=== PATIENT | female | born 1965 | race Caucasian/White ===

== ENCOUNTER 2019-10-18 12:36 | Emergency (ER) | payer SELFPAY ==
[~2019-10-18] VITALS: Ht 152.4 cm; Wt 60.5 kg
[2019-10-18 12:43] VITALS: BP 130/85; TEMP 98.1
[2019-10-18 13:23] VITALS: PULSE 80
== END 2019-10-18 13:22 | disposition home or self-care (01) ==
LOC: COL.ER 12:36
DX: R21 Rash and other nonspecific skin eruption (principal); T78.40XA Allergy, unspecified, initial encounter
CPT/HCPCS: J1040; J1200

== ENCOUNTER 2020-09-20 14:08 | Inpatient (IN) | payer SELFPAY ==
[~2020-09-20] VITALS: Ht 152.4 cm; Wt 67.0 kg
[2020-09-20 15:10] LABS: BASO # 0.1 (0.0-0.2); BASO % 0.6 % (0.0-2.0); EOS # 0.2 (0.0-0.7); EOS % 2.3 % (0-4.0); GRAN # 4.4 (1.4-6.5); GRAN % 51.3 % (42.2-75.2); LYMPH # 3.2 (1.2-3.4); LYMPH % 36.7 % (20.0-51.0); MEAN CELL VOLUME 63 fl (80.0-100.0); MEAN CORPUSCULAR HGB CONC 26 g/dl (33.0-37.0); MEAN PLATELET VOLUME 9.9 fl (7.4-10.4); MONO # 0.8 (0.1-0.6); MONO % 8.8 % (1.7-9.3); PLATELET COUNT 493 K/mm3 (130-400); RED BLOOD COUNT 2.62 M/mm3 (4.10-5.30); REDCELL DISTRIBUTION WIDTH-CV 18.4 % (11.5-14.5)
[2020-09-20 15:13] LABS: MEAN CORPUSCULAR HEMOGLOBIN 16 pg (27.0-31.0)
[2020-09-20 15:15] LABS: HEMATOCRIT 16.5 % (37.0-47.0); HEMOGLOBIN 4.3 g/dl (12.5-16.0)
[2020-09-20 15:37] LABS: ALANINE AMINOTRANSFERASE 11 U/L (4-34); ALBUMIN 3.5 gm/dL (3.5-5.0); ALKALINE PHOSPHATASE 80 U/L (50-136); ANION GAP 7 mmol/L (7-16); AST,SGOT 25 U/L (15-37); BILIRUBIN,TOTAL < 0.1 mg/dL (0.0-1.0); BLOOD UREA NITROGEN 13 mg/dL (7-17); CALCIUM 8.4 mg/dL (8.4-10.2); CARBON DIOXIDE 25 mmol/L (22-30); CHLORIDE 107 mmol/L (98-107); CREATININE, serum 0.55 (0.52-1.25); GLUCOSE 82 mg/dL (74-106); LIPASE 24 U/L (23-300); POTASSIUM 3.5 mmol/L (3.4-5.0); SODIUM 140 mmol/L (137-145); TOTAL PROTEIN 6.6 gm/dL (6.4-8.2)
[2020-09-20 15:49] LABS: TROPONIN-I < 0.012 ng/mL (0.000-0.035)
[2020-09-20 17:24] LABS: COLLECTION METHOD CLEAN CATCH
[2020-09-20 17:42] LABS: MUCOUS Present /lpf; PH 6 (5-8); SQUAMOUS EPITHELIAL 0-2 /hpf; URINE APPEARANCE Clear; URINE BACTERIA None Seen /hpf; URINE BILIRUBIN Negative (NEGATIVE); URINE BLOOD Negative (NEGATIVE); URINE COLOR Straw; URINE GLUCOSE Negative (NEGATIVE); URINE KETONE Negative (NEGATIVE); URINE LEUKOCYTE ESTERASE 3+ (NEGATIVE); URINE NITRATE Negative (NEGATIVE); URINE PROTEIN(semi-quant) Negative (NEGATIVE); URINE RBC 0-2 /hpf; URINE UROBILINOGEN Negative (NEGATIVE)
[2020-09-20 17:51] LABS: IRON,SERUM < 10 ug/dL (35-150)
[2020-09-20 18:00] LABS: TOTAL IRON BINDING CAPACITY 501 ug/dL (265-497)
--- NOTE | 2020-09-20 18:07 | NUR ---
PT IN ROOM FROM ED. ASSESSMENT COMPLETED. PT IS CURRENTLY STABLE, NO OTHER CONCERNS.
[2020-09-20] MEDS ORDERED: PROAIR HFA0.09 MG/AC IH (18:10)
[2020-09-20] MEDS ORDERED: RT ALBUTER2.5 MG/0.5 IH (18:11)
[2020-09-20 20:08] VITALS: BP 116/65; PULSE 86; TEMP 98.3
[2020-09-21] VITALS (19 sets, daily range): BP systolic 100–127; BP diastolic 54–83; PULSE 18–78; TEMP 97.9–98.4
--- NOTE | 2020-09-21 01:48 | NUR ---
Patient sitting up in bed upon shift start. Patient A/O x4. Patient denies any pain or discomfort. Denies SOB or dyspnea, denies headache or dizziness. VS stable. Patient independent in the room. Ambulates to the bathroom indepedently. All scheduled meds given per JUL. NPO maintained from midnight. Blood transfusion started at 00:42 am per order. Remained at bedside for the first 15 minutes to monitor. No adverse reaction noted. Will continue to monitor.
--- NOTE | 2020-09-21 06:05 | NUR ---
2 units of blood transfused over the night. Blood transfusion finished at 05:55 am. Patient tolerated blood transfusion well. VS stable. No acute distress noted. Call light within reach. Will continue to monitor.
--- NOTE | 2020-09-21 07:27 | NUR ---
PT IS IN BED SLEEPING AT THIS TIME.
[2020-09-21 08:32] LABS: BASO # 0.1 (0.0-0.2); BASO % 0.8 % (0.0-2.0); EOS # 0.2 (0.0-0.7); EOS % 1.9 % (0-4.0); GRAN # 5.5 (1.4-6.5); LYMPH # 1.5 (1.2-3.4); MEAN CORPUSCULAR HGB CONC 29 g/dl (33.0-37.0); MONO # 0.6 (0.1-0.6); MONO % 7.1 % (1.7-9.3); PLATELET COUNT 412 K/mm3 (130-400); RED BLOOD COUNT 3.14 M/mm3 (4.10-5.30); REDCELL DISTRIBUTION WIDTH-CV 23.8 % (11.5-14.5)
[2020-09-21 08:38] LABS: HEMATOCRIT 22.2 % (37.0-47.0); HEMOGLOBIN 6.4 g/dl (12.5-16.0); MEAN CELL VOLUME 71 fl (80.0-100.0); MEAN CORPUSCULAR HEMOGLOBIN 20 pg (27.0-31.0)
[2020-09-21 08:46] LABS: CALCIUM 8.5 mg/dL (8.4-10.2); CREATININE, serum 0.54 (0.52-1.25); MAGNESIUM 2.1 mg/dL (1.6-2.3); POTASSIUM 3.6 mmol/L (3.4-5.0)
--- NOTE | 2020-09-21 11:10 | NUR ---
First visit from the tube buffer. No needs right now.
--- NOTE | 2020-09-21 13:18 | NUR ---
PT VEINS ARE BLOWING WITH ATTEMPT TO PLACE IV. PT DOES HAVE 18G IN LEFT HAND. ORDER FOR PICC IS PLACED, AND YO WOODSON WILL PLACE TODAY. NO FURTHER CONCERNS AT THIS TIME. PAIN MANAGEMENT IS BEING MANAGED. NO FURTHER CONCERNS.
--- NOTE | 2020-09-21 15:26 | NUR ---
ETIENNE met with the patient and her zlblyzvge-eets-toy daughter, Tonya, to discuss discharge plan. The patient lives in [place] with Tonya. She reports independence with ADLs and does not have any DME. The patient does not have a PCP and confirms that she is self pay. ETIENNE discussed getting set up at [facility] in [place]. The patient was interested in this. ETIENNE contacted [facility] and secured the patient an appointment on 11/09/20. The medical records receptionist reports that this is the soonest opening they have. ETIENNE informed the patient and community health counselor of the appointment. The patient's records and d/c orders will need to be faxed to [facility]. She receives her medications from [facility]. She reports that she has not been on any medications in the past, so has not had any difficulties affording them. ETIENNE discussed Medicaid and the patient was interested in applying for Medicaid while here. ETIENNE consulted Financial Counselor, [place]. The patient also provided ETIENNE with her completed FAA. ETIENNE provided the FAA to [place]. The patient does not have a DPOA-HC, but she was interested in obtaining a form. ETIENNE provided. The patient is not . She has four children. Three children are over the age 18: Oleg (36), Laura (33), and Joyce (19). The patient plans to return home with her daughter upon discharge. SW to continue to follow as needed. *Discharge plan: home with daughter, records and d/c orders need to be faxed to [facility] in [place].
[2020-09-21 17:16] LABS: TRANSFERRIN 377 mg/dL (180-382)
[2020-09-21 17:17] LABS: CALCIUM, IONIZED, SERUM 1.26 mmol/L (1.19-1.41)
[2020-09-21 17:58] LABS: FOLATE (FOLIC ACID) 13.3 ng/mL (7.0-31.4)
[2020-09-21 18:47] LABS: HEMOGLOBIN 8.4 g/dl (12.5-16.0)
--- NOTE | 2020-09-21 19:05 | NUR ---
REPORT GIVEN TO YO MORRIS
--- NOTE | 2020-09-21 23:07 | NUR ---
PT ALERT AND OX4. STARTED ON BOWEL PREP FOR COLONSCOPY TOMORROW WHICH IS MAKING HER FEEL BLOATED AND SICK. C.O NAUSEA. PRN ZOFRAN GIVEN. ALONG W PM MEDS. POC DISCUSSED. IS TO HAVE COLON/EDG AT 12 TOMORROW WILL BE NPO LATER. ENC HER TO CONTINUE DRINKING MIRLAX AND GATORAIDE. FENTANYL GIVEN PRN FOR ABD PAIN/HERNIA BOTHERSOME. RATES /. NEEDS MET
--- NOTE | 2020-09-22 01:46 | NUR ---
PT HAD A HARD TIME W BOWEL PREP. VERY NAUSEATED AND FEELING OF BLOATING. NPO NOW. WILL CONTACT HOSP AND SEE WHAT PLAN IS. RESTING QUIELTY NOW.
--- NOTE | 2020-09-22 01:48 | NUR ---
CONTACTED DIMA OJEDA TO UPDATE ON UNABLE TO TOLERATE BOWEL PREP. WILL REATTEMPT THIS AM TOLERATES.
[2020-09-22 03:34] VITALS: BP 122/74; PULSE 73; TEMP 97.9
--- NOTE | 2020-09-22 03:54 | NUR ---
pt is up having some bm this am states they are starting to get less and more clear.
[2020-09-22 06:25] LABS: MEAN CELL VOLUME 73 fl (80.0-100.0); MEAN CORPUSCULAR HGB CONC 30 g/dl (33.0-37.0); MEAN PLATELET VOLUME 10.2 fl (7.4-10.4); PLATELET COUNT 407 K/mm3 (130-400); RED BLOOD COUNT 3.63 M/mm3 (4.10-5.30); REDCELL DISTRIBUTION WIDTH-CV 24.9 % (11.5-14.5)
[2020-09-22 06:28] LABS: CALCIUM 8.4 mg/dL (8.4-10.2); CREATININE, serum 0.5 (0.52-1.25); POTASSIUM 3.2 mmol/L (3.4-5.0)
[2020-09-22 06:30] LABS: HEMATOCRIT 26.6 % (37.0-47.0); HEMOGLOBIN 7.9 g/dl (12.5-16.0); MEAN CORPUSCULAR HEMOGLOBIN 22 pg (27.0-31.0)
--- NOTE | 2020-09-22 06:42 | NUR ---
Report rcvd from YO Valdovinos. Pt has been bowel prepping for her EGD/Colon today. No further concerns at this time. Will continue to monitor for clear stools.
[2020-09-22 07:50] VITALS: BP 106/66; PULSE 66; TEMP 97.9
[2020-09-22 12:03] VITALS: BP 122/74; PULSE 69; TEMP 98.9
[2020-09-22 15:46] VITALS: BP 117/68; PULSE 66; TEMP 98.2
[2020-09-22 20:17] VITALS: BP 112/55; PULSE 82; TEMP 98.5
[2020-09-22 23:58] VITALS: BP 127/67; PULSE 76; TEMP 98
--- NOTE | 2020-09-23 00:58 | NUR ---
ALERT AND OX4. PT DENIES SOA DIZZY OR LIGHTHEADED. PAIN IN LOWER ABD RATES 5/10. DENIES NEED FOR PAIN MED AT THIS TIME. PM MEDS AND PRN DISCUSSED. PICC TO RT UPPER ARM FLUSHED GOOD BLOOD RETURN. HEMOGLOBIN STABLE AT 7.9. AM LABS ORDERED. CR NECK IN AM, WILL MAKE NPO 4 HRS PRIOR. POC DISCUSSED. NEEDS MET.
[2020-09-23 04:10] VITALS: BP 131/69; PULSE 70; TEMP 98.3
--- NOTE | 2020-09-23 05:16 | NUR ---
PT NEEDED PAIN MED X1 TONIGHT OTHERWISE HAD A DECENT NIGHT. AM LABS FROM PICC. STILL NEEDS CT NECK THIS AM. NEEDS MET.
[2020-09-23 06:37] LABS: MEAN CELL VOLUME 76 fl (80.0-100.0); MEAN CORPUSCULAR HGB CONC 29 g/dl (33.0-37.0); MEAN PLATELET VOLUME 10.2 fl (7.4-10.4); PLATELET COUNT 384 K/mm3 (130-400); RED BLOOD COUNT 3.53 M/mm3 (4.10-5.30); REDCELL DISTRIBUTION WIDTH-CV 26.5 % (11.5-14.5)
[2020-09-23 06:39] LABS: HEMATOCRIT 26.7 % (37.0-47.0); HEMOGLOBIN 7.8 g/dl (12.5-16.0); MEAN CORPUSCULAR HEMOGLOBIN 22 pg (27.0-31.0)
[2020-09-23 06:44] LABS: CALCIUM 8.4 mg/dL (8.4-10.2); CREATININE, serum 0.55 (0.52-1.25); POTASSIUM 3.4 mmol/L (3.4-5.0)
--- NOTE | 2020-09-23 07:49 | NUR ---
Patient resting in bed at this time. O2 running at 2.5 L via nasal cannula. Patient denies any pain, discomfort, or further needs at this time. Will continue to monitor. Call light within reach.
[2020-09-23 07:52] VITALS: BP 115/60; PULSE 78; TEMP 98.1
--- NOTE | 2020-09-23 08:49 | NUR ---
Patient taken down via wheelchair for CT.
[2020-09-23 11:27] VITALS: BP 129/69; PULSE 71; TEMP 98.1
[2020-09-23 16:44] VITALS: BP 131/74; PULSE 77; TEMP 98.3
--- NOTE | 2020-09-23 17:59 | NUR ---
Patient has had an uneventful day. Last HGB was 7.8. Patient has been C/O of pain in her abdomen. Before [place], patient rated the pain a 6/10, patient now rates pain 3/10. CT showed small right pleural effusion. Patient does not C/O any SOA, and is currently SATing 94% on RA. Patient denies any further pain, discomfort, or needs at this time. Daughter at the bedside. Will continue to monitor. Call light within reach.
[2020-09-23 19:31] VITALS: BP 122/66; PULSE 77; TEMP 97.9
[2020-09-24 00:46] VITALS: BP 125/76; PULSE 75; TEMP 98.1
--- NOTE | 2020-09-24 00:52 | NUR ---
Patient assessed around 2100. Alert and oriented, and able to make needs known. Denies having pain and discomfort at this time. Double lumen PICC to RUE. Denies having SOB and dyspnea. LS CTA. Respirations even and unlabored. HRR. Capillary refill less than 3 seconds. Non-tenting skin turgor. BSAx4. Abdomen soft and non-tender. Reports loose stools, and refused colace. No edema. Voices no questions, needs, or concerns at this time. Resting in bed with call light within reach.
[2020-09-24 05:02] VITALS: BP 132/77; PULSE 73; TEMP 98.4
--- NOTE | 2020-09-24 05:53 | NUR ---
Patient has been resting in bed with call light within reach. Has denied having pain and discomfort this shift. Voices no questions, needs, or concerns at this time.
[2020-09-24 07:08] LABS: CALCIUM 8.6 mg/dL (8.4-10.2); CREATININE, serum 0.5 (0.52-1.25); POTASSIUM 3.6 mmol/L (3.4-5.0)
[2020-09-24 07:11] LABS: BASO # 0.1 (0.0-0.2); BASO % 0.7 % (0.0-2.0); EOS # 0.2 (0.0-0.7); EOS % 2.7 % (0-4.0); GRAN # 4.6 (1.4-6.5); LYMPH # 2.3 (1.2-3.4); LYMPH % 29.1 % (20.0-51.0); MEAN CELL VOLUME 77 fl (80.0-100.0); MEAN CORPUSCULAR HGB CONC 29 g/dl (33.0-37.0); MEAN PLATELET VOLUME 10.1 fl (7.4-10.4); MONO # 0.8 (0.1-0.6); MONO % 9.8 % (1.7-9.3); PLATELET COUNT 358 K/mm3 (130-400); RED BLOOD COUNT 3.75 M/mm3 (4.10-5.30); REDCELL DISTRIBUTION WIDTH-CV 28.3 % (11.5-14.5)
[2020-09-24 07:14] LABS: HEMATOCRIT 28.9 % (37.0-47.0); HEMOGLOBIN 8.3 g/dl (12.5-16.0); MEAN CORPUSCULAR HEMOGLOBIN 22 pg (27.0-31.0)
--- NOTE | 2020-09-24 07:29 | NUR ---
Patient sitting up in bed at this time. C/O headache rated a 6/10. [place] given as ordered. Will continue to monitor. Patient denies any other pain or discomfort at this time. Call light within reach.
[2020-09-24 08:23] VITALS: BP 140/86; PULSE 77; TEMP 97.9
[2020-09-24] MEDS ORDERED: VENOFER IV (10:59)
[2020-09-24] MEDS ORDERED: B-121000 MCG PO (10:59)
[2020-09-24] MEDS ORDERED: VITAMIN D31000 IU PO (11:01)
[2020-09-24] MEDS ORDERED: FERROUSAL325 MG PO (11:02)
[2020-09-24 11:20] VITALS: BP 144/92; PULSE 64; TEMP 98.4
--- NOTE | 2020-09-24 13:57 | NUR ---
Patient given scheduled meds. Assessment performed. Patient denied any SOA, pain, or discomfort. Patient was deemed fit for discharge. Discharge education/instructions given, patient denied any question or concerns. PICC line to stay in for outpatient iron infusions. Signs and symptoms of infection discussed. Patient verbalized an understanding. VSS. Patient ambulated from the building escorted by [facility] Staff.
--- NOTE | 2020-09-24 13:59 | NUR ---
Pharmacy Assistant attended clinical rounds with the team and patient is ready for discharge today. Patient will need IV iron infusions and is agreeable to be [facility] up at [facility]. Patient reports she has completed a financial assistance application. ETIENNE contacted [facility] at [facility] and faxed history & physical, prescription for iron infusions, and discharge orders. Patient's first appointment will be Sunday at 1630. ETIENNE provided appointment to patient and progressive care unit registered nurse to be included in discharge orders. ETIENNE also faxed clinical information and discharge orders to [facility]. Discharge Plan: Home
== END 2020-09-24 13:00 | disposition home or self-care (01) | DRG 812 ==
LOC: COL.ER 14:08 → MEDICAL 16:41
PROVIDERS: Emergency Medicine; Internal Medicine Gastroenterology; Physician Assistant; ADMIT Family Medicine
PROC: 02HV33Z Insertion of Infusion Device into Superior Vena Cava, Percutaneous Approach (ICD-10-PCS; principal; 2020-09-21)
PROC: 0DJD8ZZ Inspection of Lower Intestinal Tract, Via Natural or Artificial Opening Endoscopic (ICD-10-PCS; 2020-09-22)
PROC: 0DB98ZX Excision of Duodenum, Via Natural or Artificial Opening Endoscopic, Diagnostic (ICD-10-PCS; 2020-09-22 12:00)
DX: D50.9 Iron deficiency anemia, unspecified (principal); D62 Acute posthemorrhagic anemia; M79.7 Fibromyalgia; D47.3 Essential (hemorrhagic) thrombocythemia; K46.9 Unspecified abdominal hernia without obstruction or gangrene; Z90.710 Acquired absence of both cervix and uterus; Z90.49 Acquired absence of other specified parts of digestive tract
CPT/HCPCS: 99232-AI; 99233-AI; C1751; C1892; C9113; G0378; J1756; J1885; J2405; J2704; J3010; J3420; J7030; P9016; Q9967

== ENCOUNTER 2020-10-04 13:00 | Outpatient (RCR) | payer SELFPAY ==
[2020-09-27 16:39] VITALS: BP 134/94; PULSE 84; TEMP 98.4
[2020-09-30 11:53] VITALS: BP 121/79; PULSE 85; TEMP 97.9
[~2020-10-04] VITALS: Ht 152.4 cm; Wt 63.5 kg
[~2020-10-04 13:00] MED LIST: B-121000 MCG PO; FERROUSAL325 MG PO; PROAIR HFA0.09 MG/AC IH; RT ALBUTER2.5 MG/0.5 IH; VENOFER IV; VITAMIN D31000 IU PO
[2020-10-04 13:30] VITALS: BP 129/87; PULSE 76; TEMP 98.7
[2020-10-04 14:02] LABS: BASO # 0.1 (0.0-0.2); BASO % 1.2 % (0.0-2.0); EOS # 0.2 (0.0-0.7); EOS % 2.7 % (0-4.0); GRAN # 3.9 (1.4-6.5); HEMOGLOBIN 10.7 g/dl (12.5-16.0); LYMPH # 2.9 (1.2-3.4); LYMPH % 37.3 % (20.0-51.0); MEAN CELL VOLUME 79 fl (80.0-100.0); MEAN CORPUSCULAR HEMOGLOBIN 24 pg (27.0-31.0); MEAN CORPUSCULAR HGB CONC 30 g/dl (33.0-37.0); MEAN PLATELET VOLUME 9.4 fl (7.4-10.4); MONO # 0.7 (0.1-0.6); MONO % 8.4 % (1.7-9.3); PLATELET COUNT 547 K/mm3 (130-400); RED BLOOD COUNT 4.54 M/mm3 (4.10-5.30)
[2020-10-04 14:10] LABS: HEMATOCRIT 35.7 % (37.0-47.0)
== END 2020-10-04 21:52 | disposition home or self-care (01) ==
LOC: EUO 13:00
PROVIDERS: Internal Medicine
DX: D50.9 Iron deficiency anemia, unspecified (principal)
CPT/HCPCS: J1756

== ENCOUNTER 2020-11-14 16:23 | Emergency (ER) | payer SELFPAY ==
[~2020-11-14] VITALS: Ht 152.4 cm; Wt 61.4 kg
[2020-11-14] MEDS ORDERED: AMOXICILLIN 8751 TAB PO (17:14)
[2020-11-14 17:25] VITALS: BP 118/84; PULSE 78; TEMP 98.5
== END 2020-11-14 17:26 | disposition home or self-care (01) ==
LOC: COL.ER 16:23
DX: J01.80 Other acute sinusitis (principal); B96.89 Other specified bacterial agents as the cause of diseases classified elsewhere; Z87.891 Personal history of nicotine dependence

== ENCOUNTER 2020-12-28 07:20 | Day surgery (SDC) | payer SELFPAY ==
[~2020-12-28] VITALS: Ht 152.4 cm; Wt 67.3 kg
[~2020-12-28 07:20] MED LIST changes: +AMOXICILLIN 8751 TAB PO
[2020-12-28 07:43] VITALS: BP 127/92; PULSE 75; TEMP 97.3
[2020-12-28] MEDS ORDERED: NATURAL IRON65 MG PO (07:55)
[2020-12-28] MEDS ORDERED: VITAMIN D31000 IU PO (07:55)
[2020-12-28] MEDS ORDERED: B-121000 MCG PO (07:56)
[2020-12-28 07:57] LABS: HEMATOCRIT 40.2 % (37.0-47.0); HEMOGLOBIN 13.2 g/dl (12.5-16.0)
[2020-12-28 10:11] VITALS: BP 103/61; PULSE 76; TEMP 98.3
--- NOTE | 2020-12-28 10:11 | NUR ---
The patient arrived back to Bee 1 from the operating room at this time. The patient appears drowsy but arouses easily to her name. The patient's daughter is at her bedside at this time. The patient's dressing to her left groin appears clean, dry and intact. The patient reports some pressure at the incision site at this time. Post operative vital signs were started at this time. Call light is within reach. Will continue to monitor the patient.
[2020-12-28] MEDS ORDERED: NORCO 325 MG-51 TAB PO (10:22)
[2020-12-28 10:26] VITALS: BP 91/66; PULSE 61
--- NOTE | 2020-12-28 10:26 | NUR ---
The patient appears more alert at this time. She is sitting up talking with her daughter. Vital signs appear stable. Will continue to monitor the patient.
[2020-12-28 10:41] VITALS: BP 105/65; PULSE 64
--- NOTE | 2020-12-28 10:41 | NUR ---
The patient ambulated to the bathroom with the stand by assistance of one nurse and appeared to tolerate the activity well. Vital signs appear stable. The patient voided without difficulty.
--- NOTE | 2020-12-28 10:50 | NUR ---
The patient was given a diet cola at her request and appears to be tolerating it well. The patient continues to report pain/pressure in her left groin and was given a PRN dose of [place] one tab a this time. Will continue to monitor the patient.
--- NOTE | 2020-12-28 11:10 | NUR ---
Discharge instructions were reviewed with the patient and her daughter at this time. The patient's IV to her left hand was removed and a pressure dressing was applied to the site. The nurse instructed the patient to get dressed and notify the staff when she is ready to be escorted out.
--- NOTE | 2020-12-28 11:20 | NUR ---
The patient was escorted out via wheelchair to a private vehicle by YO Henderson. The patient's belongings and discharge paperwork were sent with her. The patient's daughter is present to drive her home.
== END 2020-12-28 11:20 | disposition home or self-care (01) ==
LOC: SDCO 07:20
PROVIDERS: Surgery
DX: K40.90 Unilateral inguinal hernia, without obstruction or gangrene, not specified as recurrent (principal); K44.9 Diaphragmatic hernia without obstruction or gangrene; D50.0 Iron deficiency anemia secondary to blood loss (chronic); Z79.899 Other long term (current) drug therapy; J45.909 Unspecified asthma, uncomplicated; Z90.49 Acquired absence of other specified parts of digestive tract; Z90.710 Acquired absence of both cervix and uterus; Z85.41 Personal history of malignant neoplasm of cervix uteri; Z20.822 Contact with and (suspected) exposure to COVID-19
CPT/HCPCS: J0690; J2704; J3010; J7120

== ENCOUNTER 2021-03-14 12:59 | Emergency (ER) | payer SELFPAY ==
[~2021-03-14] VITALS: Ht 152.4 cm; Wt 67.3 kg
[~2021-03-14 12:59] MED LIST changes: +NATURAL IRON65 MG PO; +NORCO 325 MG-51 TAB PO
[2021-03-14 13:31] VITALS: TEMP 97.9
[2021-03-14] MEDS ORDERED: UNKNWON PO (13:54)
[2021-03-14] MEDS ORDERED: AMOXICILLIN 8751 TAB PO (14:18)
[2021-03-14] MEDS ORDERED: PREDNISONE20 MG PO (14:18)
[2021-03-14 14:37] VITALS: BP 147/99; PULSE 65
== END 2021-03-14 14:37 | disposition home or self-care (01) ==
LOC: COL.ER 12:59
DX: J01.80 Other acute sinusitis (principal); B96.89 Other specified bacterial agents as the cause of diseases classified elsewhere; Z20.822 Contact with and (suspected) exposure to COVID-19

== ENCOUNTER 2021-03-21 10:24 | Emergency (ER) | payer SELFPAY ==
[~2021-03-21] VITALS: Ht 152.4 cm; Wt 66.8 kg
[~2021-03-21 10:24] MED LIST changes: +PREDNISONE20 MG PO; +UNKNWON PO
[2021-03-21 10:33] VITALS: BP 136/92; TEMP 98.2
[2021-03-21] MEDS ORDERED: PREDNISONE20 MG PO (10:45)
[2021-03-21 10:59] VITALS: PULSE 740
== END 2021-03-21 10:59 | disposition home or self-care (01) ==
LOC: COL.ER 10:24
DX: H65.192 Other acute nonsuppurative otitis media, left ear (principal); J02.9 Acute pharyngitis, unspecified; M79.7 Fibromyalgia; F32.A Depression, unspecified

== ENCOUNTER 2021-03-22 19:25 | Emergency (ER) | payer SELFPAY ==
[~2021-03-22] VITALS: Ht 152.4 cm; Wt 66.8 kg
[2021-03-22 19:29] VITALS: TEMP 97.2
[2021-03-22 20:10] VITALS: BP 130/84; PULSE 84
== END 2021-03-22 20:10 | disposition home or self-care (01) ==
LOC: COL.ER 19:25
DX: S61.210A Laceration without foreign body of right index finger without damage to nail, initial encounter (principal); W26.9XXA Contact with unspecified sharp object(s), initial encounter; Y93.G1 Activity, food preparation and clean up

== ENCOUNTER 2021-03-28 04:56 | Emergency (ER) | payer SELFPAY ==
[~2021-03-28] VITALS: Ht 152.4 cm; Wt 66.8 kg
[2021-03-28 05:20] VITALS: BP 118/70; PULSE 78; TEMP 98.6
== END 2021-03-28 05:28 | disposition home or self-care (01) ==
LOC: COL.ER 04:56
DX: H83.8X3 Other specified diseases of inner ear, bilateral (principal); M79.7 Fibromyalgia; Z79.52 Long term (current) use of systemic steroids

== ENCOUNTER 2021-04-20 06:45 | Emergency (ER) | payer SELFPAY ==
[~2021-04-20] VITALS: Ht 152.4 cm; Wt 66.8 kg
[2021-04-20 06:51] VITALS: TEMP 98
[2021-04-20] MEDS ORDERED: AMOXICILLIN 50500 MG PO (07:22)
[2021-04-20] MEDS ORDERED: ZOFRAN ODT4 MG PO (07:30)
[2021-04-20 07:35] VITALS: BP 120/61; PULSE 80
== END 2021-04-20 07:35 | disposition home or self-care (01) ==
LOC: COL.ER 06:45
DX: H83.8X2 Other specified diseases of left inner ear (principal)

== ENCOUNTER 2021-05-27 14:28 | Emergency (ER) | payer SELFPAY ==
[~2021-05-27] VITALS: Ht 152.4 cm; Wt 66.8 kg
[~2021-05-27 14:28] MED LIST changes: +AMOXICILLIN 50500 MG PO; +ZOFRAN ODT4 MG PO
[2021-05-27 17:15] VITALS: BP 101/64; PULSE 89; TEMP 98.3
== END 2021-05-27 17:15 | disposition home or self-care (01) ==
LOC: COL.ER 14:28
DX: U07.1 COVID-19 (principal); M79.7 Fibromyalgia; Z87.891 Personal history of nicotine dependence; Z79.52 Long term (current) use of systemic steroids

== ENCOUNTER 2021-06-07 10:57 | Emergency (ER) | payer SELFPAY ==
[~2021-06-07] VITALS: Ht 165.1 cm; Wt 66.8 kg
[2021-06-07 11:28] VITALS: TEMP 98.4
[2021-06-07 11:51] LABS: COLLECTION METHOD CLEAN CATCH
[2021-06-07 11:56] LABS: PH 7 (5-8); SQUAMOUS EPITHELIAL 0-2 /hpf (0-10); URINE APPEARANCE Clear (CLEAR/HAZY); URINE BACTERIA None Seen /hpf (NONE SEEN); URINE BILIRUBIN Negative (NEGATIVE); URINE BLOOD Negative (NEGATIVE); URINE COLOR Yellow (YELLOW); URINE GLUCOSE Negative (NEGATIVE); URINE KETONE Negative (NEGATIVE); URINE LEUKOCYTE ESTERASE Trace (NEGATIVE); URINE NITRATE Negative (NEGATIVE); URINE PROTEIN(semi-quant) Negative (NEGATIVE); URINE RBC None Seen /hpf (0-2); URINE UROBILINOGEN Negative (NEGATIVE)
[2021-06-07 12:26] LABS: BASO # 0.1 K/mm3 (0.0-0.2); BASO % 0.6 % (0.0-2.0); EOS # 0.1 K/mm3 (0.0-0.7); EOS % 1.2 % (0.0-4.0); GRAN # 7.1 K/mm3 (1.4-6.5); GRAN % 65.7 % (42.2-75.2); HEMOGLOBIN 11.7 g/dl (12.5-16.0); LYMPH # 2.7 K/mm3 (1.2-3.4); LYMPH % 25.2 % (20.0-51.0); MEAN CELL VOLUME 90 fl (80.0-100.0); MEAN CORPUSCULAR HEMOGLOBIN 29 pg (27-31); MEAN CORPUSCULAR HGB CONC 32 g/dl (33.0-37.0); MEAN PLATELET VOLUME 8.9 fl (7.4-10.4); MONO # 0.8 K/mm3 (0.1-0.6); MONO % 6.9 % (1.7-9.3); PLATELET COUNT 585 K/mm3 (130-400); RED BLOOD COUNT 4.04 M/mm3 (4.10-5.30); REDCELL DISTRIBUTION WIDTH-CV 13.4 % (11.5-14.5)
[2021-06-07 12:27] LABS: HEMATOCRIT 36.2 % (37.0-47.0)
[2021-06-07 12:45] LABS: ALBUMIN 3.7 gm/dL (3.5-5.0); BILIRUBIN,TOTAL 0.4 mg/dL (0.2-1.2); CREATININE, serum 0.74 mg/dL (0.57-1.11); POTASSIUM 4.1 mmol/L (3.5-4.5); TOTAL PROTEIN 6.8 gm/dL (6.2-8.1)
[2021-06-07 15:33] VITALS: BP 123/83; PULSE 98
== END 2021-06-07 15:37 | disposition home or self-care (01) ==
LOC: COL.ER 10:57
PROVIDERS: Nurse Practitioner Family; Student in an Organized Health Care Education/Training Program
DX: K44.9 Diaphragmatic hernia without obstruction or gangrene (principal); K21.9 Gastro-esophageal reflux disease without esophagitis; M79.7 Fibromyalgia; Z90.49 Acquired absence of other specified parts of digestive tract; Z87.891 Personal history of nicotine dependence; Z79.52 Long term (current) use of systemic steroids
CPT/HCPCS: J2405; Q9967

== ENCOUNTER 2021-06-15 11:46 | Emergency (ER) | payer SELFPAY ==
[~2021-06-15] VITALS: Ht 152.4 cm; Wt 69.5 kg
[2021-06-15 11:56] VITALS: TEMP 98.1
[2021-06-15] MEDS ORDERED: PROAIR HFA0.09 MG/AC IH ×2 (13:50)
[2021-06-15] MEDS ORDERED: IPRATROPIUM BROM3 M1 IH ×2 (13:50)
[2021-06-15] MEDS ORDERED: PREDNISONE20 MG PO ×2 (13:50)
[2021-06-15 14:20] VITALS: BP 137/95; PULSE 80
== END 2021-06-15 14:20 | disposition home or self-care (01) ==
LOC: COL.ER 11:46
DX: J06.9 Acute upper respiratory infection, unspecified (principal); J98.01 Acute bronchospasm; J44.9 Chronic obstructive pulmonary disease, unspecified; M79.7 Fibromyalgia; Z79.52 Long term (current) use of systemic steroids

== ENCOUNTER 2021-08-02 07:42 | Inpatient (IN) | payer SELFPAY ==
[2021-08-02] VITALS (9 sets, daily range): BP systolic 123–151; BP diastolic 75–104; PULSE 72–113; TEMP 97.2–98.2
[~2021-08-02] VITALS: Ht 152.4 cm; Wt 66.9 kg
[~2021-08-02 07:42] MED LIST changes: +IPRATROPIUM BROM3 M1 IH
[2021-08-02] MEDS ORDERED: PRILOSEC10 MG PO (08:55)
--- NOTE | 2021-08-02 14:43 | NUR ---
Patient doing well post-opp, vital signs stable, tolerating PO intake without issues/ full liquid diet, pain controlled/ mostly reports discomfort in neck and shoulders from referred gas pains, I have encouraged her to ambulate and she is up doing so at this time with stand by of OUTSIDE INSTALLATION MACHINIST assist, will continue to monitor
--- NOTE | 2021-08-03 02:23 | NUR ---
Report received from YO Christensen. Patient on the surgical floor due to a hernia repair that was completed on 08/02/21. Full body assessment completed and vital signs are WNL. IV is placed in the right wrist with no fluids running due to patient consuming PO fluids. Patient is pleasant and A&Ox4. Patients 5 incision sites are CD&I. Per report patient was able to tolerate ice chips well however when advanced to ice cream the patient vomited. Throughout the evening shift patient has complained of intermittent nausea and vomiting, IV zofran was given during the previous. A second dose of zofran was given by this nurse at approximately 0245. Patient states that she is still have gas pains post-op; this nurse informed her that ambulating will help relieve some of the gas pains. Patient has no other complaints at this time. Call light within reach.
[2021-08-03 03:11] VITALS: BP 107/63; PULSE 101; TEMP 98.8
--- NOTE | 2021-08-03 03:20 | NUR ---
Patient states that her nausea is better after the zofran. Patient states that she has not vomited since and that she will try to eat some ice chips this morning. Patient denies pain at this time. Call light within reach.
--- NOTE | 2021-08-03 07:37 | NUR ---
PT CONTINUES TO C/O N/V OVER NIGHT. ENCOURAGED AMBULATION. PAIN CONTROLLED WITH PO MEDS AT THIS TIME. BANDAIDS TO LAP SITES CDI.
[2021-08-03 08:00] VITALS: BP 139/89; PULSE 92; TEMP 98.4
--- NOTE | 2021-08-03 09:07 | NUR ---
ETIENNE met with the patient and her daughter, Tonya, to discuss discharge plan. The patient lives in [place] with her two daughters: Tonya and Joyce Walker (ph#[phone]). She reports independence with ADLs and does not have any DME. The patient receives primary care at [facility] and she receives her medications from [facility]. She reports no difficulties obtaining her meds. The patient is listed as self pay. The patient confirms that she is self pay, but states that she was told that her surgery and stay was going to be pro lillian and covered for. SW consulted financial counseling and notified admissions. The patient states that she is low on money right now and if she does have any new prescriptions, she plans on taking them to [facility]. The patient does not have a DPOA-HC and she was not interested in completing one at this time. The patient states that she is not and she has two children: Tonya and Joyce. Both children are over the age of 18. ETIENNE informed her how her children are her next of kin. The patient verbalized understanding. The patient plans on returning home with her children upon discharge. SW to follow as needed. *Discharge plan: home with children*
--- NOTE | 2021-08-03 09:20 | NUR ---
Initial visit; Patient thanked Veterans Employment Representative for looking in on her and offering prayer and God's blessings for healing.
[2021-08-03 11:55] VITALS: BP 131/92; PULSE 93; TEMP 98.2
[2021-08-03 15:59] VITALS: BP 126/92; PULSE 99; TEMP 97.4
[2021-08-03 19:28] VITALS: BP 133/85; PULSE 102; TEMP 97.7
--- NOTE | 2021-08-03 21:07 | NUR ---
Report received from day shift RN, Tony. Patient is here due to hernia repair. Patients 5x lap sites are CD&I and covered with bandaids. Patient is pleasant and A&OX4. Full body assessment completed and vital signs are WNL. Patient complains of N/V and still has some recurring gas pain from her procedure. This nurse encouraged the patient to ambulate the halls to help move gas and bowels. IV zofran was given 194 and patient feels that this helps with her N/V temporarily. Patient has had difficulty tolerating oral food and can only consume small sips of Gatorade and ice chips. Will continue to monitor. Patient has no other complaints at this time. Call light within reach.
[2021-08-04 00:27] VITALS: BP 117/83; PULSE 99; TEMP 98.3
--- NOTE | 2021-08-04 02:12 | NUR ---
Patient still complaining of gas pain and N/V. This nurse, as well as a PCT have educated the patient on the benefits of ambulation. I explained that this will help speed her recovery. Patient states that walking to and from the toilet in her room is enough ambulation for her. I emphasized that walking the hallways would be better. Patient refused to walk the halls when PCT offered to accompany her. Patient is not due for another dose of zofran until 0400.
[2021-08-04 03:54] VITALS: BP 130/80; PULSE 108; TEMP 98.6
--- NOTE | 2021-08-04 03:54 | NUR ---
Patient up and ambulating the halls after encouragement from this nurse. Educated patient on the importance of ambulation post-op. Patient is walking with a steady gait and shows no signs of pain.
[2021-08-04 07:39] VITALS: BP 129/85; PULSE 110; TEMP 98.4
--- NOTE | 2021-08-04 08:19 | NUR ---
Pt is listed as self pay. Pt was informed by Dr. Wheatley's office that her stay would be covered by pro lillian due to her being from [facility] including her hospital stay. At this point in time [facility] is not doing pro lillian with [facility]. I called Dr. Wheatley's office and informed them that pt would be responsible for hospital costs. I contacted [facility] to contact pt concerning financial assistance. R1 notified of situation with pt. They confirmed that we do not do pro lillian for [facility].
[2021-08-04 09:29] LABS: BASO # 0.1 K/mm3 (0.0-0.2); BASO % 0.4 % (0.0-2.0); EOS % 0.3 % (0.0-4.0); GRAN # 11.6 K/mm3 (1.4-6.5); HEMATOCRIT 38.2 % (37.0-47.0); HEMOGLOBIN 11.8 g/dl (12.5-16.0); LYMPH # 1.5 K/mm3 (1.2-3.4); MEAN CELL VOLUME 83 fl (80.0-100.0); MEAN CORPUSCULAR HEMOGLOBIN 26 pg (27-31); MEAN CORPUSCULAR HGB CONC 31 g/dl (33.0-37.0); MEAN PLATELET VOLUME 9.2 fl (7.4-10.4); MONO # 1.3 K/mm3 (0.1-0.6); PLATELET COUNT 462 K/mm3 (130-400); RED BLOOD COUNT 4.58 M/mm3 (4.10-5.30); REDCELL DISTRIBUTION WIDTH-CV 15.1 % (11.5-14.5)
[2021-08-04 09:44] LABS: CALCIUM 9.5 mg/dL (8.4-10.2); CREATININE, serum 0.74 mg/dL (0.57-1.11); POTASSIUM 4.3 mmol/L (3.5-4.5)
--- NOTE | 2021-08-04 09:54 | NUR ---
Follow-up visit; Patient thanked Obiee Obia Solution Architect for looking in on her again today. She states that she will get better, she is still not feeling well. Obiee Obia Solution Architect will continue to keep her in Obiee [employer] Architect's prayers.
[2021-08-04 11:30] VITALS: BP 111/72; PULSE 106; TEMP 98.2
[2021-08-04 15:45] VITALS: BP 118/82; PULSE 75; TEMP 97.8
[2021-08-04 20:16] VITALS: BP 121/90; PULSE 107; TEMP 98
[2021-08-05] VITALS (12 sets, daily range): BP systolic 120–131; BP diastolic 69–92; PULSE 77–101; TEMP 18
--- NOTE | 2021-08-05 00:20 | NUR ---
Received report from day shift. Patient here for Randy en y. Patient alert and oriented x3. Patient ambulating in halls. Assessment performed. Lungs CTA, bowel sounds present. LAP sites x5 covered with bandaids, no drainage. PM meds provided. Patient states the only pain she is having is mild and can handle without intervention. Patient ambulated to bathroom. Patient tolerating clear liquids. Call light within reach.
--- NOTE | 2021-08-05 00:49 | NUR ---
Received report from day shift. Patient alert and oriented. VSS. Lungs CTA, bowel sounds present. Assessment performed. Patient complains of pain and nausea at this time and requests medication. Patient has had one bout of vomiting, not a significant amount. Patient resting in bed with call light near.
--- NOTE | 2021-08-05 06:10 | NUR ---
Patient had an uneventful night. Patient reported vomiting once, appeared to be mucus only. Patient was given zofran x2. Resting in bed and no other complaints at this time.
--- NOTE | 2021-08-05 10:20 | NUR ---
Pt. resting in bed. Daughter is at bedside. Pt. was up to ambulate with her daughter (approx 200ft). Pt. denies having pain. She reports having nausea earlier with morning with reported emesis approx 1 hr ago. She reports voiding without difficulty. Has not yet had a bowel movement. She denies further needs at this time. CT will come to get pt. around 1030 this morning. Call light is within her reach
--- NOTE | 2021-08-05 12:38 | NUR ---
IV site Rt. forearm noted to be leaking. Patient is currently receiving IV Phenergan for nausea as prepared by the pharmacy. New IV site initiated to lt. hand. IV med is infusing without pt. c/o burning/discomfort. Pt. denies further needs at this time. Call light is within her reach
--- NOTE | 2021-08-05 14:47 | NUR ---
Pt. resting in bed. Daughters are at her bedside. Pt. denies pain. Had another episode of emesis (approx 1mL noted in bucket). She reports that her nausea is better. She feels like her IV is leaking. IV to left hand assessed - flushes well without noted leaking. She denies further needs at this time. Call light is within her reach
--- NOTE | 2021-08-05 16:20 | NUR ---
Patient to the Or with Ann-Marie Pacu nurse. Patient prepped & ready. Patient made aware of room change to room 318 when she return from Or per administration. All belongings taken to room 318
[2021-08-06] VITALS (7 sets, daily range): BP systolic 111–148; BP diastolic 72–93; PULSE 95–113; TEMP 98–99.2
--- NOTE | 2021-08-06 02:42 | NUR ---
Received report from PACU. Patient up from repair of prior surgery for a paraesophageal hernia with mesh. Attempted to administer IV ABX and IV infiltrated. Called hospitalist for guidance. IM and PO ABX ordered. Patient tolerating clear liquids. VSS with the exception of an increased HR. Patient denies any chest pain or SOB. Will continue to monitor.
[2021-08-06 06:19] LABS: BASO # 0.1 K/mm3 (0.0-0.2); BASO % 0.3 % (0.0-2.0); EOS # 0.1 K/mm3 (0.0-0.7); EOS % 0.4 % (0.0-4.0); GRAN % 84.6 % (42.2-75.2); HEMOGLOBIN 11.2 g/dl (12.5-16.0); LYMPH # 1.3 K/mm3 (1.2-3.4); LYMPH % 7.4 % (20.0-51.0); MEAN CELL VOLUME 83 fl (80.0-100.0); MEAN CORPUSCULAR HEMOGLOBIN 26 pg (27-31); MEAN CORPUSCULAR HGB CONC 31 g/dl (33.0-37.0); MEAN PLATELET VOLUME 9.7 fl (7.4-10.4); MONO # 1.2 K/mm3 (0.1-0.6); PLATELET COUNT 452 K/mm3 (130-400); REDCELL DISTRIBUTION WIDTH-CV 15.2 % (11.5-14.5)
[2021-08-06 06:23] LABS: HEMATOCRIT 35.7 % (37.0-47.0)
[2021-08-06 06:29] LABS: CALCIUM 8.6 mg/dL (8.4-10.2); CREATININE, serum 0.78 mg/dL (0.57-1.11); POTASSIUM 3.6 mmol/L (3.5-4.5)
--- NOTE | 2021-08-06 10:35 | NUR ---
Dr. Baldwin rounded earlier this am. Patient has been resting in bed. Lap site with bandaids intact.
--- NOTE | 2021-08-06 11:40 | NUR ---
Hospitalsit team rounded. Orders obtained & plan of care reviewed. Roxicodone for pain & hopefully patient will be able to breath easier. RT called for IS. Patient tolerates clears without nausea.
--- NOTE | 2021-08-06 15:30 | NUR ---
Patient reports nausea after musinex tab. Po zofran orders obtained & given. Patient daughter went home for the day
--- NOTE | 2021-08-06 18:18 | NUR ---
Patient again reports elevated pain 9/10. She reports she tried to lay on her side and become uncomfortable. Prn pain medications given. She continues to use kpad on her back for comfort. She reports she has been up and voided. She continues to tolerate liquids without nausea.
--- NOTE | 2021-08-06 21:00 | NUR ---
Initial shift assessment done- states pain is 5/10 across upper abdomen,, can wait till 2200 for another Roxicodone, on C.L,, denies nausea- Using IS when awake, SCD,s on. Up to bathroom on own- steady on feet,, does have an INT to left hand but slightly leaking so all meds were changed to p/o/IM 24 hrs ago,, pt states shes feeling better- hopes she can go home tomorrow?
[2021-08-07 00:22] VITALS: BP 128/88; PULSE 105; TEMP 98.5
[2021-08-07 04:28] VITALS: BP 126/86; PULSE 105; TEMP 97.8
--- NOTE | 2021-08-07 05:32 | NUR ---
Quiet night-- did not want more pain meds this morning- states she was slightly nauseated this morning- was given the Zofran x1 , using IS, Up to bathroom, voiding without problems
[2021-08-07 06:53] LABS: BASO % 0.4 % (0.0-2.0); EOS # 0.1 K/mm3 (0.0-0.7); EOS % 0.6 % (0.0-4.0); GRAN # 9.6 K/mm3 (1.4-6.5); GRAN % 86.6 % (42.2-75.2); HEMOGLOBIN 10.2 g/dl (12.5-16.0); LYMPH # 0.7 K/mm3 (1.2-3.4); LYMPH % 6.3 % (20.0-51.0); MEAN CELL VOLUME 84 fl (80.0-100.0); MEAN CORPUSCULAR HEMOGLOBIN 26 pg (27-31); MEAN CORPUSCULAR HGB CONC 31 g/dl (33.0-37.0); MEAN PLATELET VOLUME 10.1 fl (7.4-10.4); MONO # 0.6 K/mm3 (0.1-0.6); MONO % 5.8 % (1.7-9.3); PLATELET COUNT 392 K/mm3 (130-400); RED BLOOD COUNT 3.95 M/mm3 (4.10-5.30); REDCELL DISTRIBUTION WIDTH-CV 15.3 % (11.5-14.5)
[2021-08-07 07:08] LABS: CALCIUM 8.5 mg/dL (8.4-10.2); CREATININE, serum 0.65 mg/dL (0.57-1.11); POTASSIUM 3.2 mmol/L (3.5-4.5)
[2021-08-07 08:09] VITALS: BP 120/63; PULSE 117; TEMP 99.1
--- NOTE | 2021-08-07 09:30 | NUR ---
PT LAYING UP IN BED ON ROOM AIR. PT STATES THAT SHE WOUDL LIKE TO HAVE SOME WATER AND ICE SHIPS. ITEMS WERE GIVEN TO PT. PT STATES THAT SHE IS HAVING SOME PAIN BUT DOES NOT WANT ANY MEDICATION AT THIS TIME. PT PUNCTURE SITES ARE COVERED WITH BANDAIDS. THEY ARE CLEAN, DRY AND INTACT. PT STATES NO OTHER NEEDS AT THIS TIME. CALL LIGHT IS WITHIN REACH.
[2021-08-07 11:03] VITALS: BP 121/75; PULSE 109; TEMP 100.7
[2021-08-07 16:18] VITALS: BP 127/74; PULSE 106; TEMP 100.5
--- NOTE | 2021-08-07 18:19 | NUR ---
PT LAYING IN BED. PT STATES THAT SHE IS "A LOT MORE TIRED TODAY." PT STATES THAT SHE DOES NOT NEED ANYTHING AT THIS TIME. CALL LIGHT IS WITHIN REACH.
[2021-08-07 19:47] VITALS: BP 119/69; PULSE 102; TEMP 98.9
[2021-08-08 01:03] VITALS: BP 94/60; PULSE 106; TEMP 99.9
[2021-08-08 04:20] VITALS: BP 110/72; PULSE 101; TEMP 99.8
--- NOTE | 2021-08-08 05:30 | NUR ---
ASSESSMENT COMPLETE FOR THIS SHIFT. PT RESTING IN BED NAPPING. PT DENIED PAIN, PALPITATIONS, SOB, N,V,D OR DIZZINESS. PT HAD AN OTHERWISE UNEVENTFUL NIGHT. PT EXPRESSED NO OTHER NEEDS AT THIS TIME. CALL LIGHT WITHIN REACH.
[2021-08-08 08:50] VITALS: BP 111/75; PULSE 92; TEMP 98.1
[2021-08-08 08:52] LABS: BASO # 0.1 K/mm3 (0.0-0.2); BASO % 0.5 % (0.0-2.0); EOS # 0.2 K/mm3 (0.0-0.7); EOS % 1.9 % (0.0-4.0); GRAN # 8.5 K/mm3 (1.4-6.5); GRAN % 78.2 % (42.2-75.2); HEMOGLOBIN 10.2 g/dl (12.5-16.0); LYMPH # 1.1 K/mm3 (1.2-3.4); LYMPH % 9.8 % (20.0-51.0); MEAN CELL VOLUME 80 fl (80.0-100.0); MEAN CORPUSCULAR HEMOGLOBIN 26 pg (27-31); MEAN CORPUSCULAR HGB CONC 32 g/dl (33.0-37.0); MEAN PLATELET VOLUME 9.7 fl (7.4-10.4); PLATELET COUNT 377 K/mm3 (130-400); RED BLOOD COUNT 3.95 M/mm3 (4.10-5.30); REDCELL DISTRIBUTION WIDTH-CV 15.3 % (11.5-14.5)
[2021-08-08 09:03] LABS: HEMATOCRIT 31.7 % (37.0-47.0)
[2021-08-08 09:04] LABS: CALCIUM 8.7 mg/dL (8.4-10.2); CREATININE, serum 0.65 mg/dL (0.57-1.11); POTASSIUM 3.2 mmol/L (3.5-4.5)
--- NOTE | 2021-08-08 10:10 | NUR ---
PT MICAELA AGUSTINAlee BED ON 2LIT VIA NC. PT STATES THAT SHE IS NOT HAVING ANY SOB OR ANYTHING. STATES "I GUESS MY LEVELS WERE LOW WHEN THEY CAME IN TO DO MY BREATHING TREATMENT SO THEY PUT THIS ON ME." PT STATES THAT SHE IS HAVING SOME DISCOMFRT IN HER ABD BUT DOES NOT WANT ANY PAIN MEDICATIONS AT THIS TIME. "I DONT WANT TO TAKE THOSE THINGS A BUNCH, THEY MAKE ME FEEL ALL WEIRD." PT STATES NEEDS AT THIS TIME. CALL LIGHT IS WITHIN REACH.
--- NOTE | 2021-08-08 10:43 | NUR ---
SPOKE TO [facility] AND ABOUT PICC ORDER. THEY STATE THAT PT DOES NOT NEED A PICC AND THAT ORDER CAN BE CANCELLED. CONTACTED CHINTAN AND INFORMED HER. VOICED UNDERSTANDING.
[2021-08-08 11:39] VITALS: BP 98/61; PULSE 94; TEMP 98.1
--- NOTE | 2021-08-08 16:10 | NUR ---
Patient had exercise oximetry and will not require home oxygen.
[2021-08-08] MEDS ORDERED: AMOXICILLIN 8751 TAB PO (16:41)
[2021-08-08 17:10] VITALS: BP 107/66; PULSE 92; TEMP 98
--- NOTE | 2021-08-08 18:29 | NUR ---
PT SITTING UP IN BED EATING DINNER ON ROOM AIR. PT STATES NO PAIN OR NEEDS AT THIS TIME. PT STATES THAT SHE DOES NOT HAVE A RIDE TO GO HOME TODAY "IT IS SO LATE, I CAN NOT GO HOME TONIGHT." PT STATES THAT SHE DOES NOT HAVE OXYGEN AT HOME AND HAS BEEN REQUIRING IT SOME. CALL LIGHT IS WITHIN REACH.
== END 2021-08-08 19:10 | disposition home or self-care (01) | DRG 164 ==
LOC: SDCO 07:42 → SURG 12:15 → SDCO 08-04 09:03 → SURG 08-04 09:04 → SDCO 08-04 09:04 → INPTSU 08-04 09:04 → SURG 08-04 09:04 → INPTSU 08-04 11:16 → SURG 08-04 11:16 → MEDICAL 08-05 17:26 → SURG 08-05 17:26 → MEDICAL 08-05 17:26
PROVIDERS: Physician Assistant; Student in an Organized Health Care Education/Training Program; ADMIT Surgery
PROC: 0DV44ZZ Restriction of Esophagogastric Junction, Percutaneous Endoscopic Approach (ICD-10-PCS; 2021-08-02)
PROC: 0BQT4ZZ Repair Diaphragm, Percutaneous Endoscopic Approach (ICD-10-PCS; principal; 2021-08-02 10:00)
PROC: 0BUT4JZ Supplement Diaphragm with Synthetic Substitute, Percutaneous Endoscopic Approach (ICD-10-PCS; 2021-08-05)
PROC: 0DQ64ZZ Repair Stomach, Percutaneous Endoscopic Approach (ICD-10-PCS; 2021-08-05)
PROC: 0DS64ZZ Reposition Stomach, Percutaneous Endoscopic Approach (ICD-10-PCS; 2021-08-05)
DX: J96.01 Acute respiratory failure with hypoxia (principal); K44.0 Diaphragmatic hernia with obstruction, without gangrene; J98.11 Atelectasis; M79.7 Fibromyalgia; K21.9 Gastro-esophageal reflux disease without esophagitis; D50.9 Iron deficiency anemia, unspecified; J45.909 Unspecified asthma, uncomplicated; D72.829 Elevated white blood cell count, unspecified; E87.6 Hypokalemia; Z86.16 Personal history of COVID-19; Z87.891 Personal history of nicotine dependence; Z90.710 Acquired absence of both cervix and uterus; Z90.49 Acquired absence of other specified parts of digestive tract; Z88.2 Allergy status to sulfonamides
CPT/HCPCS: OP; 99222; 99232-AI; 99233-AI; 99239; A9284; C1781; G0378; J0330; J0690; J0696; J1100; J1170; J1885; J2250; J2405; J2543; J2550; J2704; J3010; J7120

== ENCOUNTER 2021-09-01 13:12 | Emergency (ER) | payer SELFPAY ==
[~2021-09-01] VITALS: Ht 152.4 cm; Wt 66.8 kg
[~2021-09-01 13:12] MED LIST changes: +PRILOSEC10 MG PO
[2021-09-01 13:32] VITALS: TEMP 98.5
[2021-09-01] MEDS ORDERED: TAMIFLU 75MG75 MG PO (15:34)
[2021-09-01 15:36] VITALS: BP 124/85; PULSE 107
== END 2021-09-01 15:42 | disposition home or self-care (01) ==
LOC: COL.ER 13:12
DX: J06.9 Acute upper respiratory infection, unspecified (principal); Z87.891 Personal history of nicotine dependence; Z20.822 Contact with and (suspected) exposure to COVID-19
CPT/HCPCS: J1100

== ENCOUNTER → 2021-10-11 | Outpatient (CLI) | payer SELFPAY ==
[~2021-10-11] MED LIST changes: +NATURAL IRON65 MG; +TAMIFLU 75MG75 MG PO
== END ==
LOC: COL.RAD 09:24
DX: K44.9 Diaphragmatic hernia without obstruction or gangrene (principal); K21.9 Gastro-esophageal reflux disease without esophagitis; Z98.890 Other specified postprocedural states

== ENCOUNTER 2021-10-13 18:50 | Emergency (ER) | payer SELFPAY ==
[~2021-10-13] VITALS: Ht 152.4 cm; Wt 63.6 kg
[~2021-10-13 18:50] MED LIST changes: -NATURAL IRON65 MG
[2021-10-13 18:53] VITALS: TEMP 97.1
[2021-10-13 19:39] VITALS: BP 142/88; PULSE 81
== END 2021-10-13 19:42 | disposition home or self-care (01) ==
LOC: COL.ER 18:50
DX: R21 Rash and other nonspecific skin eruption (principal); Z28.310 Unvaccinated for COVID-19
CPT/HCPCS: J1100

== ENCOUNTER 2021-10-16 14:46 | Emergency (ER) | payer SELFPAY ==
[~2021-10-16] VITALS: Ht 152.4 cm; Wt 66.2 kg
[2021-10-16 14:55] VITALS: BP 125/91; PULSE 97; TEMP 97.5
[2021-10-16] MEDS ORDERED: NATURAL IRON65 MG (15:25)
== END 2021-10-16 15:42 | disposition home or self-care (01) ==
LOC: COL.ER 14:46
DX: L25.9 Unspecified contact dermatitis, unspecified cause (principal)
CPT/HCPCS: J1040; J1200

== ENCOUNTER 2022-07-11 16:37 | Emergency (ER) | payer SELFPAY ==
[~2022-07-11] VITALS: Ht 152.4 cm; Wt 65.9 kg
[~2022-07-11 16:37] MED LIST changes: +NATURAL IRON65 MG; +ZITHROMAX 250M250 MG PO
[2022-07-11 16:45] VITALS: BP 118/79; TEMP 98.3
[2022-07-11 17:45] VITALS: PULSE 87
== END 2022-07-11 17:46 | disposition home or self-care (01) ==
LOC: COL.ER 16:37
DX: G56.01 Carpal tunnel syndrome, right upper limb (principal); Z28.310 Unvaccinated for COVID-19

== ENCOUNTER → 2022-08-04 | Outpatient (CLI) | payer OTHER | LOC: MC.RAD 13:55 | DX: N63.20 Unspecified lump in the left breast, unspecified quadrant (principal) ==

== ENCOUNTER 2022-10-20 13:36 | Emergency (ER) | payer SELFPAY ==
[~2022-10-20] VITALS: Ht 152.4 cm; Wt 62.3 kg
[2022-10-20 13:42] VITALS: TEMP 98.2
[2022-10-20] MEDS ORDERED: PREDNISONE20 MG PO (15:27)
[2022-10-20 15:40] VITALS: BP 169/91; PULSE 80
== END 2022-10-20 15:40 | disposition home or self-care (01) ==
LOC: COL.ER 13:36
DX: L50.9 Urticaria, unspecified (principal); Z87.891 Personal history of nicotine dependence

== ENCOUNTER 2023-05-19 11:25 | Emergency (ER) | payer SELFPAY ==
[~2023-05-19] VITALS: Ht 152.4 cm; Wt 61.4 kg
[~2023-05-19 11:25] MED LIST changes: +FLEXERIL 1010 MG/TAB PO; +PREDNISONE10 MG PO
[2023-05-19 11:34] VITALS: TEMP 98.3
[2023-05-19 12:44] VITALS: BP 168/105; PULSE 64
[2023-05-22] MEDS ORDERED: ZITHROMAX Z PA250 MG PO (11:48)
== END 2023-05-19 12:44 | disposition home or self-care (01) ==
LOC: COL.ER 11:25
DX: J02.9 Acute pharyngitis, unspecified (principal); Z87.891 Personal history of nicotine dependence

== ENCOUNTER 2023-06-18 08:00 | Emergency (ER) | payer SELFPAY ==
[~2023-06-18] VITALS: Ht 152.4 cm; Wt 65.5 kg
[~2023-06-18 08:00] MED LIST changes: +ZITHROMAX Z PA250 MG PO
[2023-06-18 08:06] VITALS: BP 135/89; TEMP 98.6
[2023-06-18] MEDS ORDERED: dexAMETHasone 4 MG TAB PO ONE (08:30)
[2023-06-18 10:57] VITALS: PULSE 84
== END 2023-06-18 10:58 | disposition home or self-care (01) ==
LOC: COL.ER 08:00
DX: J06.9 Acute upper respiratory infection, unspecified (principal)
CPT/HCPCS: J8540

== ENCOUNTER 2023-06-21 11:36 | Emergency (ER) | payer SELFPAY ==
[~2023-06-21] VITALS: Ht 152.4 cm; Wt 65.5 kg
[2023-06-21] MEDS ORDERED: AMOXICILLIN 8751 TAB PO (12:06)
[2023-06-21 12:33] VITALS: BP 138/92; PULSE 91; TEMP 98
== END 2023-06-21 12:38 | disposition home or self-care (01) ==
LOC: COL.ER 11:36
DX: J01.00 Acute maxillary sinusitis, unspecified (principal); Z87.891 Personal history of nicotine dependence; Z88.2 Allergy status to sulfonamides

== ENCOUNTER 2023-11-09 13:35 | Emergency (ER) | payer OTHER ==
[~2023-11-09] VITALS: Ht 152.4 cm; Wt 66.4 kg
[2023-11-09 18:42] VITALS: BP 137/71; PULSE 78; TEMP 97.6
== END 2023-11-09 18:50 | disposition home or self-care (01) ==
LOC: COL.ER 13:35
DX: S70.02XA Contusion of left hip, initial encounter (principal); S80.212A Abrasion, left knee, initial encounter; S90.415A Abrasion, left lesser toe(s), initial encounter; M25.572 Pain in left ankle and joints of left foot; W18.30XA Fall on same level, unspecified, initial encounter; X50.1XXA Overexertion from prolonged static or awkward postures, initial encounter